=== PATIENT | female | born 1950 | race Caucasian/White ===

== ENCOUNTER 2022-11-19 08:41 | Emergency (ER) | payer MEDICARE ==
[2022-11-19] MEDS ORDERED: Baclofen 10 MG Tab PO ONE (10:31)
[2022-11-19] MEDS ORDERED: Ketorolac 30 MG/ML SDV IM ONE (10:32)
[2022-11-19] MEDS ORDERED: Acetaminophen/oxyCODONE 325-5 MG Tab PO ONE (10:32)
== END 2022-11-19 11:22 | disposition home or self-care (01) ==
LOC: JP.ED 08:41
DX: M54.50 Low back pain, unspecified (principal); E78.00 Pure hypercholesterolemia, unspecified; Z79.899 Other long term (current) drug therapy; Z88.0 Allergy status to penicillin
CPT/HCPCS: 96372; 99283; A9270